=== PATIENT | male | born 1990 | race African-American/Black ===

== ENCOUNTER 2020-05-25 08:52 | Emergency (ER) | payer SELFPAY ==
[~2020-05-25] VITALS: Ht 177.8 cm; Wt 109.0 kg
--- NOTE | 2020-05-25 09:05 | NUR ---
PT BIB [facility] FOR C/O MULIPLE EPISODE OF VOMITTING AND DIARRHEA BEGINNING AT APPROX MIDNIGHT, PT MEDICATED BY EMS WITH ZOFRAN/FENT/NS. PT ARRIVES APPEARING COMFORTABLE ON 2L NC D/T FENTANYL CAUSE MILD DESAT. PT STATES DIFFUSE ABD PAIN WELL, NO MED HX, ABD SX HX. PT TO BP, CONT PULSE OX, AWAITING ERMD EVAL
--- NOTE | 2020-05-25 09:06 | NUR ---
[facility] [phone] WANT UPDATES AVAILABLE
[2020-05-25] MEDS ORDERED: DICYCLOMINE 10 MG/ML, 2ML ONE (09:29)
[2020-05-25] MEDS ORDERED: ONDANSETRON 2MG/ML, 2ML ONE (09:29)
[2020-05-25] MEDS ORDERED: FAMOTIDINE 20 MG/2 ML ONE (09:30)
[2020-05-25] MEDS ORDERED: SODIUM CHLORIDE 0.9% 1,000ML IVBOLUS ONE ×2 (09:30→11:00)
[2020-05-25] MEDS ORDERED: SODIUM CHLORIDE FLUSH 10ML SYR IVF ONE (09:30)
[2020-05-25] MEDS ORDERED: FAMOTIDINE 20 MG/2 ML IVPush ONE (09:30)
[2020-05-25] MEDS ORDERED: ONDANSETRON 2MG/ML, 2ML IVPush ONE (09:30)
[2020-05-25] MEDS ORDERED: DICYCLOMINE 10 MG/ML, 2ML IM ONE (09:30)
[2020-05-25] MEDS ORDERED: PLEASE ENTER ALLERGIES MC SCH (10:00)
[2020-05-25 10:01] LABS: BASOPHILS % (AUTO) 0 % (0-1); EOSINOPHILS % (AUTO) 0 % (1-7); LYMPHOCYTES % (AUTO) 2 % (22-44); MEAN CORPUSCULAR HEMOGLOBIN 29.8 pg (27.5-34.5); MEAN CORPUSCULAR HGB CONC 34.4 g/dL (33.2-36.2); MEAN PLATELET VOLUME 7.6 fL (7.4-10.4); MONOCYTES % (AUTO) 2 % (2-9); NEUTROPHILS % (AUTO) 95 % (42-75); PLATELET COUNT 309 x10^3/uL (130-400); RED BLOOD COUNT 5.36 x10^6/uL (4.38-5.82); RED CELL DISTRIBUTION WIDTH 13.8 % (9.4-14.8)
[2020-05-25 10:10] LABS: ALANINE AMINOTRANSFERASE 44 U/L (12-78); ALBUMIN 4.7 g/dL (3.4-5.0); ANION GAP 6 mmol/L (5-15); CALCIUM 9.7 mg/dL (8.5-10.1); CHLORIDE 107 mmol/L (98-107); CREATININE 1.32 mg/dL (0.7-1.3)
[2020-05-25 10:12] LABS: ALKALINE PHOSPHATASE 109 U/L (45-117); BILIRUBIN,TOTAL 1.9 mg/dL (0.2-1.0); TOTAL PROTEIN 8.7 g/dL (6.4-8.2)
[2020-05-25 10:28] LABS: MD SCAN
[2020-05-25] MEDS ORDERED: PROMETHAZINE 25 MG/ML, 1ML IM ONE (10:30)
--- NOTE | 2020-05-25 10:34 | NUR ---
MULTIPLE ATTEMPTS TO OBTAIN URINE SAMPLE UNSUCCESSFUL. PT AMBULATED TO BR WITH STEADY GAIT WITH URINAL IN HAND. PT URINATED IN THE TOILET, WILL UPDATE ERP
[2020-05-25] MEDS ORDERED: PROMETHAZINE 25 MG/ML, 1ML ONE (10:40)
[2020-05-25] MEDS ORDERED: OMNIPAQUE 350 MG/ML, 100ML BOTTLE ONE (11:00)
[2020-05-25] MEDS ORDERED: HALOPERIDOL 5 MG/ML IV ONE (11:30)
[2020-05-25] MEDS ORDERED: HALOPERIDOL 5 MG/ML ONE (11:32)
--- NOTE | 2020-05-25 11:40 | NUR ---
PT REQUESTING FOR SHOWER MULTIPLE TIMES, DISCUSSED WITH PT HE WILL NOT BE ABLE TO TAKE SHOWER AT THIS TIME, FOR NECESSARY MONITORING S/P HEALTHCARE CONSULTING MANAGER. PT UPDATED ON POC, LABS/TESTS PENDING. VSS
--- NOTE | 2020-05-25 12:05 | NUR ---
PT TO SHOWER WITH TECH SUPERVISION. ERMD AWARE
[2020-05-25 12:22] VITALS: BP 109/61
[2020-05-25 12:28] LABS: MICROSCOPIC NOT IND
--- NOTE | 2020-05-25 12:48 | NUR ---
break rn- pt finished shower, ERMD aware for recheck.
--- NOTE | 2020-05-25 13:16 | NUR ---
DISCHARGE INSTRUCTIONS REVIEWED WITH PT. ALL QUESTIONS ANSWERED
== END 2020-05-25 13:18 | disposition home or self-care (01) ==
LOC: EDSEX 08:52 → ED 13:03
DX: R11.2 Nausea with vomiting, unspecified (principal); R10.84 Generalized abdominal pain; I49.8 Other specified cardiac arrhythmias; F17.210 Nicotine dependence, cigarettes, uncomplicated
CPT/HCPCS: 36415; 74177; 80053; 81003; 83690; 85025; 93005; 96361; 96372; 96374; 96375; 99285; 99406; J0500; J1630; J2405; J2550; J7030; Q9967